=== PATIENT | male | born 1945 | race Caucasian/White ===

== ENCOUNTER 2022-09-25 10:36 | Emergency (ER) | payer MEDICARE, BC, SELFPAY ==
[2022-09-25] VITALS (41 sets, daily range): BP systolic 107–157; BP diastolic 65–95; PULSE 82–122; RESP 30–36; TEMP 36.6; O2SAT 88–95; BMI 21.3
--- NOTE | 2022-09-25 11:06 | CRLHL7_ITS ---
For Patients: As a result of the Century Cures Act, medical imaging exams and procedure reports are released immediately into your electronic medical record. You may view this report before your referring provider. If you have questions, please contact your health care provider. INDICATION: Shortness of breath, cough. COMPARISON: Chest x-ray 11/19/2009. TECHNIQUE: PA and lateral views. FINDINGS: There are changes of COPD and pulmonary emphysema, worse on the right. There are new parenchymal opacities within the right lower lobe. The findings are suspicious for pneumonia in the proper clinical setting. Follow-up chest radiograph in 6-8 weeks is recommended following appropriate medical management. The cardiomediastinal silhouette and pulmonary vasculature are within normal limits. No pleural effusion or pneumothorax is seen. IMPRESSION: 1. New right lower lobe opacity suspicious for pneumonia. Follow-up chest radiograph in 6-8 weeks is recommended following appropriate medical management to confirm resolution. 2. COPD and pulmonary emphysema. Dictated by Louie Cooley MD @ 09/25/2022 12:01:48 PM (Electronically Signed)
--- NOTE | 2022-09-25 11:08 | ED.GENADULT ---
HPI - General Adult General Chief complaint: Weakness Stated complaint: Lethargy, shortness of breath Time Seen by Provider: 09/25/22 10:54 History of Present Illness HPI narrative: This 77-year-old male comes in reporting shortness of breath and cough. He states that he has a history of COPD but does not take any medicines for his breathing. He reports cold symptoms that began a week ago. For the past 5 days he states that he has been feeling worse. He does not report any fevers. He states that he gets short of breath with walking short distances. He arrives here with tachycardia and tachypnea with a pulse at 122 and respirations at 36. His O2 sats on room air on arrival or at 89%. At the time of my visit his heart rate reduced to around 105 beats per minute and oximetry is at 93% on room air. Related Data Home Medications Medication Instructions Recorded Confirmed atorvastatin 40 mg tablet 40 mg PO DAILY 09/25/22 09/25/22 Previous Rx's Medication Instructions Recorded levofloxacin 500 mg tablet 500 mg PO DAILY 10 days #10 tabs 09/25/22 Allergies Allergy/AdvReac Type Severity Reaction Status Date / Time No Known Drug Allergies Allergy Verified 09/25/22 10:42 Review of Systems Status of ROS: Reports: 10 or more systems reviewed and unremarkable except as noted in History and below Narrative: Constitutional: No fevers, no weight gain or loss. Eyes: No discharge. No vision changes. HENT: No congestion, no sore throat, no ear pain. Cardiovascular: No chest pain, no palpitations. Respiratory: Short of breath. Cough. Gastrointestinal: No abdominal pain, no vomiting, no diarrhea. Genitourinary: No dysuria, no hematuria. Musculoskeletal: Normal range of motion. Skin: No rashes, no pruritis. Neurological: No dizziness, weakness, sensory change, speech change. Endo/Heme/Allergies: No bruising or bleeding. No polydipsia. Pysch: no suicidality, no anxiety, no insomnia. All other systems reviewed and are negative. PFSH PFSH Social History Smoking Status: Former smoker How often do you have a drink containing alcohol: never How often do you have six or more drinks on one occasion: Never AUDIT-C Alcohol total score: 0 Non-prescribed substance use: denies use Exam Narrative: Exam Narrative: Constitutional: Well-developed, well-nourished, no acute distress. HEENT: Normocephalic, atraumatic. Neck: Normal range of motion. Nontender. Supple. Heart: Regular. No murmurs. Tachycardia, rate around 105 beats per minute. Intact distal pulses. Lungs: Clear to auscultation. No chest discomfort. No wheezes, rhonchi, or rales. Abdomen: Normal bowel sounds. Nontender. No rebound tenderness. Genitalia: Deferred. Back: No midline tenderness. Normal range of motion. Extremities: Normal range of motion. No injury. No pedal edema. Skin: Intact. No rash. Warm. No erythema or pallor. Neurologic: No altered sensation. No weakness. Alert and oriented. Psychiatric: No suicidality. No anxiety or depression. No insomnia. Nursing notes and vitals signs are reviewed. Const: Vital Signs, click to edit/add: Vital Signs - 24 hr 09/25/22 10:42 09/25/22 11:00 09/25/22 11:02 Temperature 97.9 F Pulse Rate 105 H 105 H Pulse Rate [Pulse Oximeter] 122 H Respiratory Rate 36 H Blood Pressure 124/81 Blood Pressure [Ri ght Upper Arm] 145/65 H Pulse Oximetry 89 92 92 Oxygen Delivery Me thod Room Air 09/25/22 11:15 09/25/22 11:39 09/25/22 11:45 Temperature Pulse Rate 101 H 103 H 107 H Pulse Rate [Pulse Oximeter] Respiratory Rate Blood Pressure Blood Pressure [Ri ght Upper Arm] Pulse Oximetry 91 93 92 Oxygen Delivery Me thod 09/25/22 11:51 09/25/22 11:52 09/25/22 12:00 Temperature Pulse Rate 110 H 102 H 102 H Pulse Rate [Pulse Oximeter] Respiratory Rate Blood Pressure 133/73 Blood Pressure [Ri ght Upper Arm] Pulse Oximetry 93 90 92 Oxygen Delivery Me thod 09/25/22 12:01 09/25/22 12:15 09/25/22 12:30 Temperature Pulse Rate 99 92 103 H Pulse Rate [Pulse Oximeter] Respiratory Rate Blood Pressure 132/80 Blood Pressure [Ri ght Upper Arm] Pulse Oximetry 92 90 91 Oxygen Delivery Me thod 09/25/22 12:32 09/25/22 12:45 09/25/22 13:00 Temperature Pulse Rate 99 96 95 Pulse Rate [Pulse Oximeter] Respiratory Rate Blood Pressure 136/95 H Blood Pressure [Ri ght Upper Arm] Pulse Oximetry 91 92 92 Oxygen Delivery Me thod 09/25/22 13:02 09/25/22 13:15 09/25/22 13:30 Temperature Pulse Rate 108 H 95 96 Pulse Rate [Pulse Oximeter] Respiratory Rate Blood Pressure 107/87 Blood Pressure [Ri ght Upper Arm] Pulse Oximetry 94 92 91 Oxygen Delivery Me thod 09/25/22 13:33 09/25/22 13:45 09/25/22 14:00 Temperature Pulse Rate 95 94 102 H Pulse Rate [Pulse Oximeter] Respiratory Rate Blood Pressure 131/88 Blood Pressure [Ri ght Upper Arm] Pulse Oximetry 91 92 93 Oxygen Delivery Me thod 09/25/22 14:01 09/25/22 14:02 09/25/22 14:15 Temperature Pulse Rate 98 104 H 90 Pulse Rate [Pulse Oximeter] Respiratory Rate Blood Pressure 157/77 H Blood Pressure [Ri ght Upper Arm] Pulse Oximetry 91 93 93 Oxygen Delivery Me thod 09/25/22 14:30 09/25/22 14:32 09/25/22 15:00 Temperature Pulse Rate 99 96 Pulse Rate [Pulse Oximeter] Respiratory Rate 30 H Blood Pressure 129/85 Blood Pressure [Ri ght Upper Arm] Pulse Oximetry 93 91 Oxygen Delivery Me thod Course Vital Signs Vital signs: Initial Vital Signs Temperature 97.9 F 09/25/22 10:42 Temperature Source Temporal Artery Scan 09/25/22 10:42 Pulse Rate 122 H 09/25/22 10:42 Respiratory Rate 36 H 09/25/22 10:42 Blood Pressure 145/65 H 09/25/22 10:42 Blood Pressure Mean 91 09/25/22 10:42 Blood Pressure Position Sitting 09/25/22 10:42 Pulse Oximetry 89 09/25/22 10:42 Oxygen Delivery Method Room Air 09/25/22 10:42 Vital Signs Temperature 97.9 F 09/25/22 10:42 Pulse Rate 122 H 09/25/22 10:42 Respiratory Rate 36 H 09/25/22 10:42 Blood Pressure 145/65 H 09/25/22 10:42 Pulse Oximetry 89 09/25/22 10:42 Oxygen Delivery Method Room Air 09/25/22 10:42 Temperature 97.9 F 09/25/22 10:42 Pulse Rate 96 09/25/22 14:32 Respiratory Rate 30 H 09/25/22 15:00 Blood Pressure 129/85 09/25/22 14:32 Pulse Oximetry 91 09/25/22 14:32 Oxygen Delivery Method Room Air 09/25/22 10:42 Medical Decision Making MDM Narrative Medical decision making narrative: This patient comes in with cough and generalized malaise with shortness of breath with any kind of exertion. When at rest he is maintaining sufficient vital signs with oximetry at 93% on room air and heart rate in the mid 90s. An IV was established and labs were drawn. He does have some increase in his white count. His D-dimer was a bit elevated at 1.03. Chest x-ray showed suspicion for pneumonia. A CT scan for pulmonary embolism workup was then completed which showed no sign of blood clot. The patient has normal lactate level. Patient received an IV dose of Solu-Medrol 125 mg. He did also receive an oral tablet of Levaquin 500 mg and a prescription for the same to complete 10 days of treatment. He is okay to return home. I encouraged him to return if any worsening symptoms happen. Lab Data Labs: Lab Results 09/25/22 09/25/22 09/25/22 Range/Units 10:05 10:55 11:07 WBC 14.15 H (4.50-11.00) K/uL RBC 4.89 (4.30-5.90) m/uL Hgb 15.4 (13.5-17.5) gm/dL Hct 44.9 (37.0-53.0) % MCV 92 (80-100) fL MCH 32 (26-34) pg MCHC 34 (32-36) gm/dL RDW Coeff of Danny 11.9 (11.5-15.5) % Plt Count 268 (140-440) K/uL Neut % (Auto) 80.7 H (42.0-72.0) % Lymph % (Auto) 6.4 L (20-44) % Isabella % (Auto) 11.5 H (0.0-11.0) % Eos % (Auto) 0.1 (0.0-7.0) % Baso % (Auto) 0.3 (0.0-3.0) % Neut # (Auto) 11.40 H (1.7-7.0) K/uL Lymph # (Auto) 0.90 (0.90-2.90) K/uL Isabella # (Auto) 1.60 H (0.00-0.90) K/UL Eos # (Auto) 0.00 (0.00-0.50) K/uL Baso # (Auto) 0.00 (0.00-0.30) K/uL D-Dimer Quant (PE/DVT) 1.03 H (0.00-0.50) ug/ml Sodium 133 L (135-149) mmol/L Potassium 3.7 (3.6-5.1) mmol/L Chloride 96 (96-114) mmol/L Carbon Dioxide 29 (20-32) mmol/L BUN 19 (7-30) mg/dL Creatinine 0.9 (0.5-1.5) mg/dL Estimated Creat Clear 56.45 Estimated GFR 89 ml/min Glucose 181 H (60-115) mg/dL Lactate 1.8 (0.5-1.9) mmol/L Calcium 9.0 (8.4-10.6) mg/dL SARS-CoV-2 (PCR) Negative SARS-CoV-2 (Negative) Influenza Type A (PCR) Negative PCR FLU A (Negative) Influenza Type B (PCR) Negative PCR FLU B (Negative) RSV (PCR) Negative PCR RSV (Negative) POC Troponin I 0.01 (0.01-0.04) ng/ml Imaging Data Chest x-ray: Radiologist's impression: 1. New right lower lobe opacity suspicious for pneumonia. Follow-up chest radiograph in 6-8 weeks is recommended following appropriate medical management to confirm resolution. 2. COPD and pulmonary emphysema. CT scan - chest: Radiologist's impression: 1. Negative for acute pulmonary embolism. 2. Small patchy ground-glass opacities in the lower lungs are likely infectious or inflammatory. 3. Advanced emphysema with diffuse bronchial wall thickening and scattered mucous plugging. 4. 5 mm noncalcified pulmonary nodule in the left lower lobe. Please see follow-up guidelines below. ECG Data Attestation: I personally reviewed and interpreted this ECG as follows: Interpretation: Sinus tachycardia, rate 113 beats per minute. There are no specific ST or T-wave abnormalities. Discharge Plan Discharge Clinical Impression: Pneumonia Patient Disposition: Home, Self-Care Condition: Stable Additional Instructions: Take medication as prescribed. Follow up with MD or return if symptoms are persistent or worsening. Prescriptions: New levofloxacin 500 mg tablet 500 mg PO DAILY 10 Days Qty: 10 0RF No Action atorvastatin 40 mg tablet 40 mg PO DAILY Follow Up/Referrals: Tasia Russell MD [Primary Care Provider] - Stand Alone Forms: [employer] Info Instructions
[2022-09-25 11:29] LABS: Lactate* 1.8 mmol/L (0.5-1.9)
[2022-09-25 11:35] LABS: Basophils Percent Auto 0.3 % (0.0-3.0); Eosinophils Percent Auto 0.1 % (0.0-7.0); Hematocrit 44.9 % (37.0-53.0); Hemoglobin* 15.4 gm/dL (13.5-17.5); Lymphocytes Percent Auto 6.4 % (20-44); Mean Corpuscular HGB Conc 34 gm/dL (32-36); Mean Corpuscular Hemoglobin 32 pg (26-34); Mean Corpuscular Volume 92 fL (80-100); Monocytes Percent Auto 11.5 % (0.0-11.0); Neutrophils Percent Auto 80.7 % (42.0-72.0); Platelet Count* 268 K/uL (140-440); RDW Coefficient of Variation % 11.9 % (11.5-15.5); Red Blood Count 4.89 m/uL (4.30-5.90); White Blood Count* 14.15 K/uL (4.50-11.00)
[2022-09-25 11:40] LABS: Troponin, Point-of-Care* 0.01 ng/ml (0.01-0.04)
[2022-09-25] MEDS: METHYLPREDNISOLONE SOD SUCC 62.5 MG/ML (125) 125 MG IVP (11:50)
[2022-09-25 11:54] LABS: Slide Review Reflex No
[2022-09-25 11:58] LABS: PCR FLU A Negative PCR FLU A (Negative); PCR FLU B Negative PCR FLU B (Negative); PCR RSV Negative PCR RSV (Negative)
[2022-09-25 11:59] LABS: D Dimer Quantitative* 1.03 ug/ml (0.00-0.50)
[2022-09-25 11:59] LABS: SARS PCR* Negative SARS-CoV-2 (Negative)
[2022-09-25 12:59] LABS: Chloride* 96 mmol/L (96-114)
[2022-09-25 13:00] LABS: Potassium* 3.7 mmol/L (3.6-5.1); Sodium* 133 mmol/L (135-149)
[2022-09-25 13:02] LABS: Creatinine* 0.9 mg/dL (0.5-1.5); Est. Creatinine Clearance* 56.45; Estimated Glomerular Filt Rate 89 ml/min
[2022-09-25 13:03] LABS: Blood Urea Nitrogen* 19 mg/dL (7-30); Carbon Dioxide* 29 mmol/L (20-32); Glucose* 181 mg/dL (60-115)
--- NOTE | 2022-09-25 13:04 | CRLHL7_ITS ---
For Patients: As a result of the Century Cures Act, medical imaging exams and procedure reports are released immediately into your electronic medical record. You may view this report before your referring provider. If you have questions, please contact your health care provider. INDICATION: Shortness of breath, pneumonia, elevated D-dimer. COMPARISON: Chest radiograph 09/25/2022. TECHNIQUE: CT chest angiogram PE protocol acquired with 95 cc of Isovue 370 IV contrast. Coronal and sagittal reconstructions. 2D and 3D MIP images for post processing were performed and interpreted on an independent workstation, and 3D images were permanently archived. FINDINGS: Normal heart size. Normal caliber thoracic aorta and central pulmonary arteries. Calcified and noncalcified atheromatous plaque throughout the thoracic aorta. Minimal coronary artery calcification. Negative for acute pulmonary embolism. No pericardial effusion. Mildly prominent mediastinal and bilateral hilar lymph nodes are likely reactive. The thyroid gland is normal in appearance. Advanced upper lung predominant emphysema. Biapical pleural scarring. No pleural effusion or pneumothorax. Small patchy ground-glass opacities in the right middle lobe, right lower lobe, and left lower lobe are likely infectious or inflammatory. Linear atelectasis or scarring right lower lobe. Diffuse bronchial wall thickening and scattered mucous plugging greatest in the right lower lobe. 5 mm noncalcified pulmonary nodule in the lateral left lower lobe (series 5, image 115). Small low-attenuation lesion in the left hepatic lobe. The visualized upper abdomen is otherwise unremarkable. The bones are within normal limits. IMPRESSION: 1. Negative for acute pulmonary embolism. 2. Small patchy ground-glass opacities in the lower lungs are likely infectious or inflammatory. 3. Advanced emphysema with diffuse bronchial wall thickening and scattered mucous plugging. 4. 5 mm noncalcified pulmonary nodule in the left lower lobe. Please see follow-up guidelines below. [employer] GUID[employer] - SOLID NODULES: : SINGLE LOW RISK - nodule less than 6 mm: No routine follow-up. - nodule 6-8 mm: CT at 6-12 months, then consider CT at 18-24 months. - nodule greater than 8 mm: Consider CT at 3 months, PET/CT or tissue sampling. SINGLE HIGH RISK - nodule less than 6 mm: Optional CT at 12 months. - nodule 6-8 mm: CT at 6-12 months, then CT at 18-24 months. - nodule greater than 8 mm: Consider CT at 3 months, PET/CT or tissue sampling. Please note that all CT scans at this facility use dose modulation, iterative reconstruction, and/or weight-based dosing when appropriate to reduce radiation dose to as low as reasonably achievable. Dictated by Whit Alvarez MD @ 09/25/2022 4:05:01 PM (Electronically Signed)
[2022-09-25] MEDS: levoFLOXacin 500 MG TABLET PO (16:53)
== END 2022-09-25 17:09 | disposition home or self-care (01) ==
PROVIDERS: Emergency Provider Emergency Medicine Emergency Medical Services; PCP Family Medicine
DX: J18.9 Pneumonia, unspecified organism (principal)
CPT/HCPCS: 36415; 71046; 71260; 80048; 83605; 84484; 85025; 85379; 87040; 87631; 93005; 96374; 99284; 99285; A9270; J2930; Q9967